=== PATIENT | female | born 1975 | race Caucasian/White ===

== ENCOUNTER 2016-08-27 09:06 | Emergency (ER) | payer OTHER ==
--- NOTE | ~2016-08-27 | CR127 ---
[facility] A Service of [facility] & [facility] RADIOLOGY TEXT RESULTS PATIENT: SUSIE SOLORIO LOCATION: [place] : 79 UNIT #: [id number] AGE: [address]: Tasneem Metzger APRN SEX: F ORDER DR: [id number] [facility] [address] [facility]. [place], [place] [address] [id number] E MR#: [id number] Acc #: [id number] NAME: SUSIE SOLORIO : 1975 SEX: F STUDY DATE/TIME: 08/27/2016 9:47 UNIT: [facility] ROOM: STUDY DESCRIPTION: CR Foot Complete Min 3 View Rt Attending Physician: Tasneem Metzger A.P.R.N. Ordering Physician: [facility] Primary Care Physician: Juan F Tejeda A.P.R.N. MEDICAL IMAGING REPORT This report is preliminary unless electronic signature is present EXAM Three views right foot INDICATIONS Right foot pain after hitting her toes on the bed Saturday. FINDINGS No acute fracture or subluxation of the right foot is identified, I do not see any focal soft tissue abnormalities. No aggressive osseous abnormalities are seen. IMPRESSION Negative Dictated by... Cristiana Kebede M.D. THIS IS AN ELECTRONICALLY VERIFIED REPORT Cristiana Kebede M.D. at 08/27/2016 3:27 PM AFF/rafael TD: 08/27/2016 13:42 JOB #: [id number] MEDICAL IMAGING REPORT Page 1 of 1 COPY
== END 2016-08-27 11:07 | disposition home or self-care (01) ==
LOC: CFTX 09:06 → CED 09:06 → CFTX 10:36
DX: S90.31XA Contusion of right foot, initial encounter (principal); Z88.2 Allergy status to sulfonamides; Z79.899 Other long term (current) drug therapy; W22.8XXA Striking against or struck by other objects, initial encounter; Y92.009 Unspecified place in unspecified non-institutional (private) residence as the place of occurrence of the external cause
CPT/HCPCS: 29405; 73630; 99283